=== PATIENT | female | born 1960 | race Caucasian/White ===

== ENCOUNTER → 2017-06-19 | Outpatient (CLI) | payer OTHER ==
[~2017-06-19] MED LIST: ASCO10004 PO; CALC-255 PO; CALC1CAP8 PO; CARB100T3 PO; CHOL100015 PO; CHOL20002 PO; CHOL500050 PO; DIAZ10TA PO; DIAZ10TA4 PO; ESTR1.25 PO; HYDR-3307 PO; LORA-446 PO; MAGNESIUM PO; METO10TA82 PO; METO5SOL18 PO; MORP-52 PO; MORP15TA3 PO; OMEG1CAP39 PO; ONDA8TAB9 PO; ONDA8TAB9 SL; OXYC10TA6 PO; POLY17PO5 PO; RIZA10TA20 PO; THYR15TA PO; THYR30TA PO; VITAMIN B6 PO; [UNRECOGNIZED DRUG - CODE] PO
== END ==
LOC: STAR 14:52
PROVIDERS: ATTEND Internal Medicine
DX: Z02.9 Encounter for administrative examinations, unspecified (principal)

== ENCOUNTER 2017-06-23 10:33 | Day surgery (SDC) | payer OTHER ==
[~2017-06-23] VITALS: Ht 175.3 cm; Wt 68.9 kg
[2017-06-23] MEDS ORDERED: LACTATED RINGERS 1,000 ML IV SCH (10:54)
[2017-06-23 10:57] VITALS: BP 133/90
[2017-06-23] MEDS ORDERED: PROPOFOL 10 MG/ML, 20ML ONE (11:42)
[2017-06-23] MEDS ORDERED: ONDANSETRON 2MG/ML, 2ML ONE (11:42)
[2017-06-23] MEDS ORDERED: GLYCOPYRROLATE 0.2MG/1ML, 5ML ONE (11:42)
[2017-06-23] MEDS ORDERED: MIDAZOLAM 1 MG/ML, 2ML ONE (11:42)
[2017-06-23] MEDS ORDERED: DEXAMETHASONE 4 MG/ML, 1ML ONE (11:42)
[2017-06-23] MEDS ORDERED: SUCCINYLCHOLINE 20 MG/ML, 10ML ONE (11:42)
[2017-06-23] MEDS ORDERED: NEOSTIGMINE 1 MG/ML, 10ML ONE (11:42)
[2017-06-23] MEDS ORDERED: CEFAZOLIN 1,000 MG ONE (11:42)
[2017-06-23] MEDS ORDERED: MIDAZOLAM 1 MG/ML, 2ML IV PRN (13:00)
[2017-06-23] MEDS ORDERED: KETOROLAC 30 MG/1 ML IV PRN ×2 (13:00)
[2017-06-23] MEDS ORDERED: ACETAMINOPHEN 325 MG TABLET PO PRN (13:00)
== END 2017-06-23 15:15 | disposition home or self-care (01) ==
LOC: OUT 10:33 → MERGE 12:30 → OUT 15:15
PROVIDERS: ATTEND Internal Medicine
DX: K56.699 Other intestinal obstruction unspecified as to partial versus complete obstruction (principal); E03.9 Hypothyroidism, unspecified; K58.9 Irritable bowel syndrome, unspecified; G43.909 Migraine, unspecified, not intractable, without status migrainosus; F41.9 Anxiety disorder, unspecified; Z87.39 Personal history of other diseases of the musculoskeletal system and connective tissue; Z90.49 Acquired absence of other specified parts of digestive tract; Z90.710 Acquired absence of both cervix and uterus; Z93.3 Colostomy status; Z98.890 Other specified postprocedural states; Z88.6 Allergy status to analgesic agent; Z88.8 Allergy status to other drugs, medicaments and biological substances
CPT/HCPCS: 44379; J0330; J0690; J1100; J1642; J2250; J2405; J2704; J2710; J7120; J3490